=== PATIENT | male | born 1940 | race Caucasian/White ===

== ENCOUNTER 2016-12-20 12:16 | Emergency (ER) | payer BC ==
[2016-12-20 12:59] VITALS: TEMP 98.5; BMI 29.1
--- NOTE | 2016-12-20 13:30 | PDOC ---
History of Present Illness - General Chief Complaint: Irregular Heart Beat Stated Complaint: AV BLOCK (PCP SENT) Time Seen by Provider: 12/20/16 13:25 - History of Present Illness Initial Comments: 12/20/16 15:11 76M with pmh of stable angina, HLD comes to the ED after PCP dr. Naqvi found him bradycardic on routine visit and sent him to the ED. Patient is asymptomatic 12/20/16 15:21 Past History - Past Medical History Allergies/Adverse Reactions: Allergies Allergy/AdvReac Type Severity Reaction Status Date / Time No Known Allergies Allergy Verified 12/20/16 12:45 Home Medications: Ambulatory Orders Amlodipine Besylate [Norvasc] 5 mg PO DAILY 04/18/12 Aspirin [ASA] 81 mg PO DAILY 04/18/12 Atenolol [Tenormin] 50 mg PO DAILY 04/18/12 Isosorbide Mononitrate [Isosorbide Mononitrate ER] 30 mg PO DAILY 04/18/12 Anemia: No Asthma: No Cancer: No Cardiac Disorders: Yes CVA: No COPD: No CHF: No Dementia: No Diabetes: No GI Disorders: No Disorders: No HTN: Yes Hypercholesterolemia: Yes Liver Disease: No Seizures: No Thyroid Disease: No - Surgical History Abdominal Surgery: Yes (HERNIA REPAIR) Appendectomy: No Cardiac Surgery: No Cholecystectomy: No Lung Surgery: No Neurologic Surgery: No Orthopedic Surgery: No - Psycho/Social/Smoking Cessation Hx Suicidal Ideation: No Smoking Status: No Smoking History: Never smoked Number of Cigarettes Smoked Daily: 0 Hx Alcohol Use: No Drug/Substance Use Hx: No Substance Use Type: None Hx Substance Use Treatment: No Cardiac Specific PMH - Complaint Specific PMHX Pacemaker: No Review of Systems - Review of Systems Constitutional: No: Symptoms Reported HEENTM: No: Symptoms Reported Respiratory: No: Symptoms reported Cardiac (ROS): No: Symptoms Reported ABD/GI: No: Symptoms Reported : No: Symptoms Reported Musculoskeletal: No: Symptoms Reported Integumentary: No: Symptoms Reported Neurological: No: Symptoms reported *Physical Exam - Vital Signs Last Vital Signs Temp Pulse Resp BP Pulse Ox 98.5 F 49 L 18 113/74 98 12/20/16 12:44 12/20/16 13:37 12/20/16 13:37 12/20/16 13:37 12/20/16 13:37 - Physical Exam General Appearance: Yes: Nourished, Appropriately Dressed. No: Apparent Distress HEENT: positive: EOMI, MEERA Neck: positive: Trachea midline, Normal Thyroid. negative: Tender Respiratory/Chest: positive: Lungs Clear, Normal Breath Sounds. negative: Chest Tender, Respiratory Distress Cardiovascular: positive: Regular Rhythm, S1, S2, Bradycardia. negative: Edema Vascular Pulses: Dorsalis-Pedis (R): 2+, Doralis-Pedis (L): 2+ Gastrointestinal/Abdominal: positive: Normal Bowel Sounds, Soft, Protuberent. negative: Tender Extremity: positive: Normal Capillary Refill ED Treatment Course - LABORATORY CBC & Chemistry Diagram: 12/20/16 13:33 12/20/16 13:33 - ADDITIONAL ORDERS Additional order review: Laboratory Results 12/20/16 12/20/16 12/20/16 13:37 13:33 13:33 INR 1.06 PTT (Actin FS) 29.1 Sodium 139 Potassium 4.3 Chloride 107 Carbon Dioxide 26 Anion Gap 6 L BUN 24 H Creatinine 1.2 Creat Clearance w eGFR 59.18 Random Glucose 114 H Calcium 9.1 Total Bilirubin 0.6 AST 22 ALT 22 Alkaline Phosphatase 37 L Creatine Kinase 156 Creatine Kinase Index 3.1 CK-MB (CK-2) 4.760 H CK-MB (CK-2) Rel Index Cancelled Troponin I < 0.02 Total Protein 6.2 L Albumin 3.6 TSH 0.65 12/20/16 13:33 RBC 4.25 MCV 90.0 MCHC 34.3 RDW 14.1 MPV 7.7 Neutrophils % 58.6 Lymphocytes % 26.7 Monocytes % 9.0 Eosinophils % 4.9 H Basophils % 0.8 - RADIOLOGY Radiology Studies Ordered: Category Date Time Status CHEST X-RAY PORTABLE* [RAD] Stat Radiology 12/20/16 13:56 Completed Medical Decision Making - Medical Decision Making 12/20/16 15:15 76M with HLD and hx of angina sent from pcp for bradycardic rhythm. patient totally asymptomatic. On ekg patient has 1st deg heart block. Negative troponins normal labs. Calls his cadiologist, Dr. Paz who confirmed that the patient had 1st deg heart block and bradycardia on his previous EKG's and could be discharged. Dr. Paz also proposed that pt follow up with office visit on if felt needed by patient. *DC/Admit/Observation/Transfer Diagnosis at time of Disposition: Bradycardia - Discharge Dispostion Disposition: HOME Condition at time of disposition: Good Admit: No - Referrals Referrals: Stefany Naqvi MD [Primary Care Provider] - Delroy Paz MD [Staff Physician] - - Patient Instructions Additional Instructions: Patient can follow up with dr. Paz on .
--- NOTE | 2016-12-20 13:33 | PDOC ---
Attending Attestation - Resident Resident Name: HalimaCameron - ED Attending Attestation I have performed the following: I have examined & evaluated the patient, The case was reviewed & discussed with the resident, I agree w/resident's findings & plan, Exceptions are as noted - HPI HPI: 76 yo M history HL, HTN, angina presents with asymptomatic bradycardia. He was sent by Dr. bob, after he was found to have bradycardia on a routine outpatient f/u visit. Patient denies cp, SOB, weakness, fatigue, numbness, [place], LOC. No symptoms at present. - Physicial Exam PE: GENERAL: Awake, alert, and fully oriented, in no acute distress HEAD: No signs of trauma EYES: PERRLA, EOMI, sclera anicteric, conjunctiva clear ENT: Auricles normal inspection, hearing grossly normal, nares patent, oropharynx clear without exudates. Moist mucosa NECK: Normal ROM, supple, no lymphadenopathy, JVD, or masses LUNGS: Breath sounds equal, clear to auscultation bilaterally. No wheezes, and no crackles HEART: Bradycardic with regular rhythm. Normal S1 and S2, no murmurs, rubs or gallops ABDOMEN: Soft, nontender, normoactive bowel sounds. No guarding, no rebound. No masses EXTREMITIES: Normal range of motion, no edema. No clubbing or cyanosis. No cords, erythema, or tenderness NEUROLOGICAL: Cranial nerves II through XII grossly intact. Normal speech, normal gait SKIN: Warm, Dry, normal turgor, no rashes or lesions noted. - Medical Decision Making Case reviewed with Dr. Paz, who follows patient as outpatient. 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 No acute intervention at this time. Stable for DC home.
[2016-12-20 13:49] LABS: BASOPHIL 0.8 % (0-2.0); EOSINOPHIL 4.9 % (0-4.5); MCH 30.8 pg (25.7-33.7); MCHC 34.3 g/dl (32.0-35.9); MEAN PLT VOLUME 7.7 fl (7.5-11.1); NEUTROPHILS 58.6 % (42.8-82.8); PLATELET COUNT 155 K/MM3 (134-434); RDW 14.1 % (11.9-15.9); WHITE BLOOD COUNT 4.4 K/mm3 (4.0-10.0)
[2016-12-20 14:16] LABS: ALBUMIN 3.6 g/dl (3.4-5.0); ANION GAP 6 (8-16); BILIRUBIN,TOTAL 0.6 mg/dL (0.2-1.0); CALCIUM 9.1 mg/dL (8.5-10.1); CO2 26 mmol/L (21-32); CREATININE 1.2 mg/dL (0.7-1.3); GLUCOSE,RANDOM 114 mg/dL (74-106); SGPT/ALT 22 U/L (12-78); TOT PROT 6.2 g/dl (6.4-8.2)
[2016-12-20 14:18] LABS: ALK PHOS 37 U/L (45-117); TROPONIN I < 0.02 ng/ml (0.00-0.05)
[2016-12-20 14:21] LABS: SGOT/AST 22 U/L (15-37)
[2016-12-20 14:39] LABS: INR 1.06 (0.82-1.09); PROTHROMBIN TIME (PATIENT) 11.7 SEC (9.98-11.88)
[2016-12-20 14:41] LABS: ACTIVATED PTT 29.1 SECONDS (26.9-34.4)
[2016-12-20 15:10] LABS: THYROID STIMULATING HORMONE 0.65 uIU/ml (0.358-3.74)
[2016-12-20 15:33] LABS: URINE APPEARANCE CLEAR; URINE BILIRUBIN NEGATIVE (NEGATIVE); URINE BLOOD 2+ (NEGATIVE); URINE COLOR LTYELLOW; URINE GLUCOSE (UA) NEGATIVE (NEGATIVE); URINE KETONE NEGATIVE (NEGATIVE); URINE LEUK ESTERASE NEGATIVE (NEGATIVE); URINE NITRITE NEGATIVE (NEGATIVE); URINE PROTEIN NEGATIVE (NEGATIVE); URINE UROBILINOGEN NEGATIVE mg/dL (0.2-1.0)
[2016-12-20 15:40] VITALS: BP 150/66; PULSE 62
[2016-12-20 15:42] LABS: URINE MUCUS RARE; URINE WBC <1 /hpf (3-5)
--- NOTE | 2016-12-21 20:53 | EKG ---
Test Reason : Blood Pressure : / mmHG Vent. Rate : 053 BPM Atrial Rate : 053 BPM P-R Int : 274 ms QRS Dur : 086 ms QT Int : 412 ms P-R-T Axes : 074 013 019 degrees QTc Int : 386 ms SINUS BRADYCARDIA WITH 1ST DEGREE A-V BLOCK RSR' IN V1 NO PREVIOUS ECGS AVAILABLE REPEAT EKG IF CLINICALLY INDICATED Confirmed by DANNA MCCAULEY MD ([id number]) on 12/21/2016 8:53:17 PM Referred By: Confirmed By:DANNA MCCAULEY MD
== END 2016-12-20 15:40 | disposition home or self-care (01) ==
LOC: JER 12:16
DX: R00.1 Bradycardia, unspecified (principal); I44.0 Atrioventricular block, first degree; I25.118 Atherosclerotic heart disease of native coronary artery with other forms of angina pectoris; I10 Essential (primary) hypertension; E78.00 Pure hypercholesterolemia, unspecified
CPT/HCPCS: 36415; 71010-TC; 80053; 81003; 81015; 82550; 82553; 84443; 84484; 85025; 85610; 85730; 93005; 93010; 99285-25

== ENCOUNTER 2021-08-19 05:39 | Day surgery (SDC) | payer BC ==
[2021-08-14 14:59] VITALS: BMI 29.4
[~2021-08-19 05:39] MED LIST: ACETAMINOPHEN 325 MG TABLET (FP) PO PRN
[2021-08-19] MEDS ORDERED: CHONDROITIN SU A/HYALUR SOD 1 KIT ONE (07:13)
[2021-08-19] MEDS ORDERED: LIDOCAINE HCL/PF 1% SDV 5ML VIAL ONE (07:28)
[2021-08-19] MEDS ORDERED: TETRACAINE 0.5% OPHTH SOLN 2 ML BOTTLE ONE (07:29)
[2021-08-19] MEDS ORDERED: POVIDONE-IODINE 5% OPHTHALMIC PREP 30 ML SOLUTION ONE (07:29)
[2021-08-19] MEDS ORDERED: BSS (NA/CA/MG/K) BALANCED SALT SOLUTION OPHTH SOLN 15 ML BOTTLE ONE (07:29)
[2021-08-19] MEDS: OFLOXACIN 0.3% OPHTHALMIC SOLUTION 5 ML BOTTLE OP SCH ×3 (10:33→10:42)
[2021-08-19] MEDS: PHENYLEPHRINE 2.5% OPHTH SOLN 15 ML BOTTLE OP SCH ×3 (10:33→10:42)
[2021-08-19] MEDS: KETOROLAC TROMETHAMINE 0.5% EYE DROP 1 DROP DROPS OP SCH ×3 (10:33→10:42)
[2021-08-19] MEDS: CYCLOPENTOLATE HCL 1% OPHTH SOLN 2 ML BOTTLE OD SCH ×3 (10:33→10:42)
[2021-08-19] MEDS: TROPICAMIDE 1% OPHTH SOLN 15 ML BOTTLE OP SCH ×3 (10:33→10:42)
[2021-08-19] MEDS ORDERED: MIDAZOLAM HCL 2 MG/2 ML SINGLE DOSE VIAL ONE (12:15)
[2021-08-19] MEDS ORDERED: TETRACAINE 0.5% OPHTH SOLN 2 ML BOTTLE OD ONE (12:23)
[2021-08-19] MEDS ORDERED: POVIDONE-IODINE 5% OPHTHALMIC PREP 30 ML SOLUTION OD ONE (12:25)
[2021-08-19] MEDS ORDERED: BSS (NA/CA/MG/K) BALANCED SALT SOLUTION OPHTH SOLN 15 ML BOTTLE OD ONE (12:30)
[2021-08-19] MEDS ORDERED: LIDOCAINE HCL 1% PRESERVATIVE FREE - 30ML VIAL IO ONE (12:32)
[2021-08-19] MEDS ORDERED: TRYPAN BLUE 0.5 ML DISP.SYRIN IO ONE (12:33)
[2021-08-19] MEDS ORDERED: PHENYLEPHRINE/KETOROLAC 4 ML VIAL IO ONE (12:39)
[2021-08-19] MEDS ORDERED: CHONDROITIN SU A/HYALUR SOD 1 KIT IO ONE (12:39)
[2021-08-19 15:22] VITALS: TEMP 98.4
[2021-08-19 15:28] VITALS: BP 128/68; PULSE 67
[2021-08-22] MEDS ORDERED: CYCLOPENTOLATE HCL 1% OPHTH SOLN 2 ML BOTTLE OP SCH ×2 (08:15→10:33)
== END 2021-08-19 12:50 | disposition home or self-care (01) ==
LOC: JASU-SURG 05:39
PROVIDERS: ATTEND Ophthalmology
PROC: 08RJ3JZ Replacement of Right Lens with Synthetic Substitute, Percutaneous Approach (ICD-10-PCS; principal; 2021-08-19 12:00)
DX: H26.9 Unspecified cataract (principal)
CPT/HCPCS: J1097

== ENCOUNTER 2022-09-21 11:55 | Day surgery (SDC) | payer BC ==
[2022-09-21] MEDS ORDERED: HYDROCORTISONE SOD SUCCINATE 100 MG/2 ML VIAL IVPB PRN (12:00)
[2022-09-21] MEDS ORDERED: IRON SUCROSE INJECTION 200 MG in SODIUM CHLORIDE 100 ML IVPB ONE (12:00)
[2022-09-21] MEDS ORDERED: diphenhydrAMINE HCL 50 MG CAPSULE PO PRN (12:00)
[2022-09-21 15:32] VITALS: BP 135/60; PULSE 55; RESP 18; TEMP 98.4
== END 2022-09-21 13:50 | disposition home or self-care (01) ==
LOC: FINFUSION 11:55 → FM/S 11:56 → FINFUSION 13:50
PROVIDERS: ATTEND Family Medicine
PROC: 3E033GC Introduction of Other Therapeutic Substance into Peripheral Vein, Percutaneous Approach (ICD-10-PCS; principal; 2022-09-21)
DX: D50.9 Iron deficiency anemia, unspecified (principal)
CPT/HCPCS: 96365; J1756

== ENCOUNTER 2022-09-28 12:06 | Day surgery (SDC) | payer BC ==
[2022-09-28] MEDS ORDERED: IRON SUCROSE INJECTION 200 MG in SODIUM CHLORIDE 100 ML IVPB ONE (12:45)
[2022-09-28 12:52] VITALS: RESP 18; TEMP 98.1
[2022-09-28 14:07] VITALS: BP 130/86; PULSE 68
== END 2022-09-28 14:10 | disposition home or self-care (01) ==
LOC: FM/S 12:06 → FINFUSION 12:06
PROVIDERS: ATTEND Family Medicine
PROC: 3E033GC Introduction of Other Therapeutic Substance into Peripheral Vein, Percutaneous Approach (ICD-10-PCS; principal; 2022-09-28)
DX: D50.9 Iron deficiency anemia, unspecified (principal)
CPT/HCPCS: 96365; J1756

== ENCOUNTER 2022-10-05 11:53 | Day surgery (SDC) | payer BC ==
[2022-10-05 12:17] VITALS: TEMP 98.4
[2022-10-05] MEDS ORDERED: IRON SUCROSE INJECTION 200 MG in SODIUM CHLORIDE 100 ML IVPB ONE (12:30)
[2022-10-05 13:46] VITALS: BP 113/64; PULSE 59; RESP 18
== END 2022-10-05 13:33 | disposition home or self-care (01) ==
LOC: FINFUSION 11:53 → FM/S 11:56 → FINFUSION 13:33
PROVIDERS: ATTEND Family Medicine
PROC: 3E033GC Introduction of Other Therapeutic Substance into Peripheral Vein, Percutaneous Approach (ICD-10-PCS; principal; 2022-10-05)
DX: D50.9 Iron deficiency anemia, unspecified (principal)
CPT/HCPCS: 96365; J1756